=== PATIENT | female | born 1955 | race Two or more races ===

== ENCOUNTER 2024-07-10 10:04 | Outpatient (CLI) | payer OTHER ==
[~2024-07-10 10:04] MED LIST: CRESTOR10 MG; LOSARTAN POTASS50 MG
== END 2024-07-10 10:07 | disposition home or self-care (01) ==
LOC: RAD 10:04
PROVIDERS: ATTEND Family Medicine
DX: M17.0 Bilateral primary osteoarthritis of knee (principal); R10.10 Upper abdominal pain, unspecified

== ENCOUNTER 2024-12-04 09:56 | Emergency (ER) | payer OTHER ==
[~2024-12-04] VITALS: Ht 160 cm; Wt 69.9 kg
[2024-12-04] MEDS ORDERED: ANASTROZOLE1 MG PO (10:16)
[2024-12-04] MEDS ORDERED: KETOROLAC TROMETHAMINE 60 MG VIAL IM ONE ×2 (11:06→11:15)
== END 2024-12-04 12:22 | disposition home or self-care (01) ==
LOC: ER 09:56
DX: M19.90 Unspecified osteoarthritis, unspecified site (principal); M25.462 Effusion, left knee; I10 Essential (primary) hypertension
CPT/HCPCS: 96372; 99282; J1885